=== PATIENT | male | born 1965 | race Caucasian/White ===

== ENCOUNTER 2022-03-01 16:39 | Emergency (ER) | payer OTHER ==
[~2022-03-01 16:39] MED LIST: ALPHA LIPOIC A300 MG PO; ASPIRIN81 MG PO; BUMEX1 MG PO; COZAAR50 MG PO; CYMBALTA20 MG PO; EFFEXOR XR150 MG PO; INSULIN PUMP1 EACH SC; LASIX20 MG PO; LISINOPRIL20 MG PO; NORVASC5 MG PO; OXYCODON-ACETA1 EAC1 PO; PERCOCET 7.5/321 TAB PO; TOPROL XL100 MG PO; TRAZODONE 100M100 MG PO; VENLAFAXINE H37.5 M2 PO; VENLAFAXINE HCL75 M2 PO; VENLAFAXINE HCL75 MG PO; ZOCOR40 MG PO
[2022-03-01 16:56] LABS: BASOPHIL 0.6 % (0-2); EOSINOPHIL 3.5 % (0-5); HCT 46.3 % (42.0-52.0); HGB 14.5 g/dl (13.2-18.0); LYMPHOCYTE 13.8 % (15-48); MCH 30.6 pg (25.0-31.0); MCHC 31.3 g/dL (32.0-36.0); MCV 97.7 fL (78.0-100.0); MONOCYTE 8.8 % (0-12); MPV 10.3 fL (6.0-9.5); NEUTROPHIL 72.7 % (41-80); NRBC 0; PLT 248 K/uL (150-400); RBC 4.74 M/uL (4.70-6.00); WBC 10.3 K/uL (4.0-10.5)
[2022-03-01 17:12] LABS: BILIRUBIN - TOTAL 0.5 mg/dL (0.2-1.0); BUN/CREAT RATIO (CALC) 14.8 RATIO; CREATININE 1.89 mg/dL (0.67-1.17); GLOBULIN (CALCULATION) 3.6 g/dL; POTASSIUM 4.2 mmol/L (3.5-5.1); TOTAL PROTEIN 7.6 g/dL (6.4-8.2)
[2022-03-01 17:25] LABS: FT4 (FREE T4) 1.2 ng/dL (0.76-1.46)
[2022-03-03] MEDS ORDERED: PERCOCET 7.5-31 EACH PO (15:12)
== END 2022-03-01 20:25 | disposition home or self-care (01) ==
LOC: FER 16:39
PROVIDERS: Emergency Medicine
DX: E10.649 Type 1 diabetes mellitus with hypoglycemia without coma (principal)
CPT/HCPCS: 36415; 80053; 84439; 84443; 85025; 93005; 96372; J1610